=== PATIENT | female | born 1990 | race Caucasian/White ===

== ENCOUNTER 2016-12-16 11:11 | Emergency (ER) | payer MEDICAID, OTHER ==
[~2016-12-16] VITALS: Ht 167.6 cm; Wt 54.0 kg
[~2016-12-16 11:11] MED LIST: ASPI1TAB7 PO; PREN0.01 PO; ZOFR4TAB3 PO
[2016-12-16 11:23] VITALS: BP 109/73; PULSE 106; RESP 16
== END 2016-12-16 12:30 | disposition left against medical advice (07) ==
LOC: PHED 11:11
DX: N64.4 Mastodynia (principal)
CPT/HCPCS: 99281